=== PATIENT | male | born 1950 | race Two or more races ===

== ENCOUNTER 2024-07-21 12:03 | Inpatient (IN) | payer OTHER ==
[2024-07-20 23:00] VITALS: BP 146/75; O2SAT 96
[~2024-07-21] VITALS: Ht 152.4 cm; Wt 163.3 kg
[2024-07-21 14:25] LABS: HEMATOCRIT 35.3 % (39.0-48.0); HEMOGLOBIN 11.9 g/dL (13-16.00); MEAN CELL VOLUME 90.6 fL (80.0-100.00); MEAN CORPUSCULAR HEMOGLOBIN 30.4 pg (27.00-32.0); MEAN CORPUSCULAR HGB CONC 33.6 g/dl (32.0-36.0); PLATELET COUNT 270 K/uL (150-450); RED CELL DISTRIBUTION WIDTH 15.9 % (11.5-14.5)
[2024-07-21 15:03] LABS: CALCIUM 8.8 mg/dL (8.5-10.1); GFR 10.88; POTASSIUM 4.14 mEq/L (3.5-5.1)
[2024-07-21 15:31] LABS: CREATININE SERUM 5.22 mg/dL (0.70-1.30)
[2024-07-21 15:47] LABS: PH,URINE 5.5 (5.0-8.0); URINE APPEARANCE Clear; URINE BILIRRUBIN Negative (NEGATIVE); URINE BLOOD Large; URINE COLOR Yellow; URINE GLUCOSE Negative (NEGATIVE); URINE KETONE Negative (NEGATIVE); URINE LEUKOCYTE Trace; URINE NITRATE Negative; URINE PROTEIN Negative (NEGATIVE); URINE UROBILINOGEN 0.2 E.U./dl
[2024-07-21 15:49] LABS: URINE BACTERIA 21.4 uL (0.0-1933); URINE EPITHELIAL CELLS 11.1 uL (0.0-38.8); URINE RBC 44.5 uL (0.0-20.8); URINE WBC 33.5 uL (0.0-23.2)
[2024-07-21] MEDS ORDERED: 0.9 % SODIUM CHLORIDE 1,000 ML IV SCH ×2 (20:30→21:30)
[2024-07-21] MEDS ORDERED: TAMSULOSIN HCL 0.4 MG CAP PO SCH (21:18)
[2024-07-21] MEDS ORDERED: hydrALAZINE HCL 20 MG VIAL IV PRN (21:30)
[2024-07-21] MEDS ORDERED: 0.9 % SODIUM CHLORIDE 1,000 ML IV ONE (21:30)
[2024-07-21] MEDS ORDERED: ACETAMINOPHEN 500 MG GEL..CAP PO PRN (21:30)
[2024-07-21 22:17] LABS: INR 0.95; PROTHROMBIN TIME 10.4 SECONDS (9.0-11.5)
[2024-07-21 22:19] LABS: PARTIAL THROMBOPLASTIN TIME < 20.0 SECONDS (22.0-34.0)
[2024-07-21 22:22] LABS: MAGNESIUM 3.4 mg/dL (1.8-2.4); PHOSPHOROUS 4.8 mg/dL (2.5-4.9)
[2024-07-22 00:39] VITALS: BP 150/80; O2SAT 98
[2024-07-22 00:41] VITALS: BP 155/80
[2024-07-22 05:00] VITALS: BP 147/83; O2SAT 95
[2024-07-22 07:39] LABS: CALCIUM 8.7 mg/dL (8.5-10.1); CHOL HDL RATIO 5.3 (0-5.0); CREATININE SERUM 2.44 mg/dL (0.70-1.30); GFR 26.17; POTASSIUM 4.04 mEq/L (3.5-5.1); PROSTATIC SPECIFIC ANTIGEN 3.13 NG/ML (0.010-4.00); TSH 0.946 uIU/mL (0.358-3.74)
[2024-07-22] MEDS ORDERED: ENOXAPARIN SODIUM 30 MG/0.3 ML SYRINGE SUBCUTANEO SCH (09:00)
[2024-07-22] MEDS ORDERED: PANTOPRAZOLE SODIUM 40 MG/VIAL VIAL IV SCH (09:00)
[2024-07-22] MEDS ORDERED: FINASTERIDE 5 MG TABLET PO SCH (09:00)
[2024-07-22 09:02] VITALS: BP 151/81
[2024-07-22 17:37] VITALS: BP 173/88
[2024-07-23] LABS: HEMATOCRIT 31.9 % (39.0-48.0); MEAN CELL VOLUME 89.3 fL (80.0-100.00); MEAN CORPUSCULAR HEMOGLOBIN 30.8 pg (27.00-32.0); MEAN CORPUSCULAR HGB CONC 34.5 g/dl (32.0-36.0); PLATELET COUNT 244 K/uL (150-450); RED BLOOD COUNT 3.57 M/uL (4.00-6.00); RED CELL DISTRIBUTION WIDTH 15.9 % (11.5-14.5)
[2024-07-23 00:20] LABS: ALBUMIN 2.8 gm/dL (3.4-5.0); BILIRUBIN TOTAL 0.27 mg/dL (0.3-1.2); CREATININE SERUM 1.6 mg/dL (0.70-1.30); GFR 42.58; GLOBULINA 3.1 G/DL (2.4-3.5); MAGNESIUM 2.4 mg/dL (1.8-2.4); POTASSIUM 3.92 mEq/L (3.5-5.1); TOTAL PROTEIN 5.9 gm/dL (6.4-8.2)
[2024-07-23 00:32] VITALS: BP 154/84; O2SAT 98
[2024-07-23 08:33] VITALS: BP 170/80
[2024-07-23] MEDS ORDERED: SODIUM CHLORIDE 0.45 % 1,000 ML IV SCH (09:15)
[2024-07-23] MEDS ORDERED: FAMOtidine 20 MG TABLET PO NR (11:00)
[2024-07-23] MEDS ORDERED: LOSARTAN POTASSIUM 50 MG TABLET PO NR (11:00)
[2024-07-23] MEDS ORDERED: FAMOtidine 20 MG TABLET PO SCH (17:00)
[2024-07-23] MEDS ORDERED: AMLODIPINE BESYLATE 2.5 MG TABLET PO SCH (17:00)
[2024-07-23 18:51] VITALS: BP 158/74; O2SAT 97
[2024-07-24 00:27] VITALS: BP 167/90; O2SAT 98
[2024-07-24 06:53] LABS: ALBUMIN 2.9 gm/dL (3.4-5.0); CALCIUM 8.4 mg/dL (8.5-10.1); CREATININE SERUM 0.98 mg/dL (0.70-1.30); GFR 74.97; POTASSIUM 3.99 mEq/L (3.5-5.1)
[2024-07-24] MEDS ORDERED: LOSARTAN POTASSIUM 50 MG TABLET PO SCH (09:00)
[2024-07-24 09:12] VITALS: BP 147/85
[2024-07-24] MEDS ORDERED: TAMS0.4C PO (09:44)
[2024-07-24] MEDS ORDERED: COZAAR50 MG PO (09:44)
[2024-07-24] MEDS ORDERED: NORVASC2.5 M1 PO (09:44)
[2024-07-24] MEDS ORDERED: FINASTERIDE5 MG PO (09:45)
[2024-07-24] MEDS ORDERED: FAMOTIDINE20 MG PO (09:45)
[2024-07-24] MEDS ORDERED: POTASSIUM PHOS,M-BASIC-D-BASIC 18 MM in 0.9 % SODIUM CHLORIDE 500 ML IV ONE (12:00)
== END 2024-07-24 18:19 | disposition home or self-care (01) | DRG 684 ==
LOC: ER 12:04 → SEC-K 21:57 → MEDJ 07-22 00:20
PROVIDERS: General Practice; Internal Medicine Nephrology; ADMIT Internal Medicine; ATTEND Internal Medicine
PROC: BW21ZZZ Computerized Tomography (CT Scan) of Abdomen and Pelvis (ICD-10-PCS; principal; 2024-07-21)
PROC: 0T9B70Z Drainage of Bladder with Drainage Device, Via Natural or Artificial Opening (ICD-10-PCS; 2024-07-21)
DX: N17.9 Acute kidney failure, unspecified (principal); N32.0 Bladder-neck obstruction; N40.1 Benign prostatic hyperplasia with lower urinary tract symptoms; R33.8 Other retention of urine; I12.9 Hypertensive chronic kidney disease with stage 1 through stage 4 chronic kidney disease, or unspecified chronic kidney disease; N18.9 Chronic kidney disease, unspecified